=== PATIENT | male | born 1970 | race American Indian/Alaskan Native ===

== ENCOUNTER 2019-02-03 07:24 | Emergency (ER) | payer OTHER ==
[2019-02-03] MEDS ORDERED: NACL 0.9% 1000 ML 1,000 ML IV ONE ×2 (07:35→10:21)
[2019-02-03 08:10] LABS: Bilirubin,Urine NEG (Negative); Blood,Urine NEG (Negative); Color,Urine Yellow (Yellow); Protein,Urine <15 mg/dL mg/dL (Negative)
[2019-02-03 08:11] LABS: Basophils % (Auto) 0.4 % (0.0-1.8); Eosinophils # (Auto) 0.1 K/mm3 (0.0-0.4); Eosinophils % (Auto) 0.5 % (0.0-4.3); Hematocrit 38.7 % (35.5-45.6); Lymphocytes # (Auto) 2.1 K/mm3 (1.2-5.4); Lymphocytes % (Auto) 19.8 % (13.4-35.0); Mean Corpuscular HGB Conc 34 % (32-34); Mean Corpuscular Volume 83 fl (84-94); Monocytes # (Auto) 1.1 K/mm3 (0.0-0.8); Monocytes % (Auto) 9.8 % (0.0-7.3); Platelet Count 334 K/mm3 (140-440); Red Blood Count 4.66 M/mm3 (3.65-5.03); Red Cell Distribution Width 13.5 % (13.2-15.2)
[2019-02-03 08:28] LABS: Alanine Aminotransferase 18 units/L (7-56); BUN/Creatinine Ratio 16; Blood Urea Nitrogen 18 mg/dL (9-20); Calcium 8.7 mg/dL (8.4-10.2); Hemolysis Index 15
[2019-02-03] MEDS ORDERED: TORADOL IV ONE (09:32)
[2019-02-03] MEDS ORDERED: ZOFRAN IV ONE (10:12)
[2019-02-03] MEDS ORDERED: ZOFRAN ONE (10:15)
--- NOTE | 2019-02-03 11:10 | Cat Scan Report ---
PROCEDURE: CT ABDOMEN PELVIS WO CON TECHNIQUE: Multiple contiguous axial images were obtained from lung bases to the pubic symphysis wit hout administration of IV contrast. Reformatted sagittal and coronal images were available for review . HISTORY: left flank pain COMPARISONS: None. FINDINGS: Lower thorax: Normal. Liver and biliary tree: Normal noncontrast appearance. Gallbladder: Normal. Spleen: Normal noncontrast appearance. Pancreas: Normal noncontrast appearance. Adrenal glands: Normal. Kidneys, ureters, and bladder: Normal noncontrast appearance. No hydronephrosis. No renal or ureteral calculi. Bowel:No focal wall thickening. No evidence of obstruction. Post appendectomy changes of the cecum. Peritoneum/mesentery: Medial to the left kidney and inferior to the left adrenal gland, there is a so ft tissue lesion that measures approximately 2.8 x 2.5 x 3.9 cm (series 2, image 62, transverse by AP by craniocaudal dimensions). No free air or free fluid. Pelvic organs:Normal. Vasculature: Normal noncontrast appearance. Abdominal wall: Normal. Bones: No suspicious osseous lesions. No acute fracture or dislocation. Degenerative changes at L5-S1 . IMPRESSION: 2.8 x 2.5 x 3.9 cm soft tissue retroperitoneal lesion medial to the left kidney and inferior to the l eft adrenal gland, that may represent lymphadenopathy from infection or inflammation versus malignanc y. Recommend clinical correlation. No renal or ureteral calculi. No hydronephrosis. This document is electronically signed by Lisa Bradshaw MD., February 03 2019 11:07:38 AM ET
--- NOTE | 2019-02-03 11:22 | Emergency Department Report ---
ED Abdominal Pain HPI - General Chief Complaint: Abdominal Pain Stated Complaint: L SIDE/BACK PAIN Time Seen by Provider: 02/03/19 09:07 Source: patient Mode of arrival: Ambulatory Limitations: No Limitations - History of Present Illness Initial Comments: Patient is a 48-year-old male with a past history of diabetes who is presenting with 2 days of left flank pain. Patient states that he's had some mild nausea but denies any hematuria dysuria or urinary frequency. Patient states the aching sensation left flank. He has not had this pain before. Patient states pain is a 6 out of 10 in severity. Radiation: none Migration to: no migration Severity scale (0 -10): 6 Quality: aching Consistency: constant Improves With: nothing - Related Data Previous Rx's Medication Instructions Recorded Last Taken Type Amoxicillin/Potassium Clav 1 each PO BID #14 tablet 02/03/19 Unknown Rx [Augmentin 875-125 Tablet] Ibuprofen [Ibu] 600 mg PO Q6HR PRN #20 tablet 02/03/19 Unknown Rx Ondansetron [Zofran Odt] 4 mg PO Q8HR #10 tab.rapdis 02/03/19 Unknown Rx traMADol [Ultram] 50 mg PO Q6HR PRN #12 tablet 02/03/19 Unknown Rx Allergies Allergy/AdvReac Type Severity Reaction Status Date / Time No Known Allergies Allergy Unverified 02/03/19 07:35 ED Review of Systems ROS: Stated complaint: L SIDE/BACK PAIN Other details as noted in HPI Comment: All other systems reviewed and negative ED Past Medical Hx - Past Medical History Previous Medical History?: Yes Hx Hypertension: Yes Hx Diabetes: Yes - Surgical History Past Surgical History?: Yes Hx Appendectomy: Yes Additional Surgical History: Knee surgery, left - Medications Home Medications: Home Medications Medication Instructions Recorded Confirmed Last Taken Type Amoxicillin/Potassium Clav 1 each PO BID #14 tablet 02/03/19 Unknown Rx [Augmentin 875-125 Tablet] Ibuprofen [Ibu] 600 mg PO Q6HR PRN #20 tablet 02/03/19 Unknown Rx Ondansetron [Zofran Odt] 4 mg PO Q8HR #10 tab.rapdis 02/03/19 Unknown Rx traMADol [Ultram] 50 mg PO Q6HR PRN #12 tablet 02/03/19 Unknown Rx ED Physical Exam - General Limitations: No Limitations General appearance: alert, in no apparent distress - Head Head exam: Present: atraumatic, normocephalic - Eye Eye exam: Present: normal appearance - ENT ENT exam: Present: mucous membranes moist - Neck Neck exam: Present: normal inspection - Respiratory Respiratory exam: Present: normal lung sounds bilaterally. Absent: respiratory distress, wheezes, rales, rhonchi - Cardiovascular Cardiovascular Exam: Present: regular rate, normal rhythm. Absent: systolic murmur, diastolic murmur, rubs, gallop - GI/Abdominal GI/Abdominal exam: Present: soft, normal bowel sounds. Absent: distended, tenderness, guarding, rebound - Rectal Rectal exam: Present: deferred - Extremities Exam Extremities exam: Present: normal inspection - Back Exam Back exam: Present: normal inspection - Neurological Exam Neurological exam: Present: alert, oriented X3 - Psychiatric Psychiatric exam: Present: normal affect, normal mood - Skin Skin exam: Present: warm, dry, intact, normal color. Absent: rash ED Course Vital Signs 02/03/19 10:19 Respiratory 20 Rate ED Medical Decision Making - Lab Data Result diagrams: 02/03/19 07:47 02/03/19 07:44 Lab Results 02/03/19 02/03/19 02/03/19 Range/Units 07:44 07:47 07:47 WBC 10.7 (4.5-11.0) K/mm3 RBC 4.66 (3.65-5.03) M/mm3 Hgb 13.0 (11.8-15.2) gm/dl Hct 38.7 (35.5-45.6) % MCV 83 L (84-94) fl MCH 28 (28-32) pg MCHC 34 (32-34) % RDW 13.5 (13.2-15.2) % Plt Count 334 (140-440) K/mm3 Lymph % (Auto) 19.8 (13.4-35.0) % Curry % (Auto) 9.8 H (0.0-7.3) % Eos % (Auto) 0.5 (0.0-4.3) % Baso % (Auto) 0.4 (0.0-1.8) % Lymph # 2.1 (1.2-5.4) K/mm3 Curry # 1.1 H (0.0-0.8) K/mm3 Eos # 0.1 (0.0-0.4) K/mm3 Baso # 0.0 (0.0-0.1) K/mm3 Seg Neutrophils % 69.5 (40.0-70.0) % Seg Neutrophils # 7.4 (1.8-7.7) K/mm3 Sodium 130 L (137-145) mmol/L Potassium 4.3 (3.6-5.0) mmol/L Chloride 89.1 L (98-107) mmol/L Carbon Dioxide 27 (22-30) mmol/L Anion Gap 18 mmol/L BUN 18 (9-20) mg/dL Creatinine 1.1 (0.8-1.5) mg/dL Estimated GFR > 60 ml/min BUN/Creatinine Ratio 16 % Glucose 343 H (75-100) mg/dL Calcium 8.7 (8.4-10.2) mg/dL Total Bilirubin 0.60 (0.1-1.2) mg/dL AST 15 (5-40) units/L ALT 18 (7-56) units/L Alkaline Phosphatase 97 (35-129) units/L Total Protein 7.7 (6.3-8.2) g/dL Albumin 4.0 (3.9-5) g/dL Albumin/Globulin Ratio 1.1 % Urine Color Yellow (Yellow) Urine Turbidity Clear (Clear) Urine pH 6.0 (5.0-7.0) Ur Specific [place] 1.027 (1.003-1.030) Urine Protein <15 mg/dl (Negative) mg/dL Urine Glucose (UA) >=500 (Negative) mg/dL Urine Ketones 20 (Negative) mg/dL Urine Blood Neg (Negative) Urine Nitrite Neg (Negative) Urine Bilirubin Neg (Negative) Urine Urobilinogen 2.0 (<2.0) mg/dL Ur Leukocyte Esterase Neg (Negative) Urine WBC (Auto) 1.0 (0.0-6.0) /HPF Urine RBC (Auto) 1.0 (0.0-6.0) /HPF U Epithel Cells (Auto) 1.0 (0-13.0) /HPF - Radiology Data [facility] [address] [place] [address] Cat Scan Report Signed Patient: NICANOR LANGE MR#: [id number] : 1970 Acct:[id number] Age/Sex: 48 / M ADM Date: 02/03/19 Loc: ED Attending Dr: Ordering Physician: MARANDA LINK MD Date of Service: 02/03/19 Procedure(s): CT abdomen pelvis wo con Accession Number(s): [id number] cc: MARANDA LINK MD PROCEDURE: CT ABDOMEN PELVIS WO CON TECHNIQUE: Multiple contiguous axial images were obtained from lung bases to the pubic symphysis without administration of IV contrast. Reformatted sagittal and coronal images were available for review. HISTORY: left flank pain COMPARISONS: None. FINDINGS: Lower thorax: Normal. Liver and biliary tree: Normal noncontrast appearance. Gallbladder: Normal. Spleen: Normal noncontrast appearance. Pancreas: Normal noncontrast appearance. Adrenal glands: Normal. Kidneys, ureters, and bladder: Normal noncontrast appearance. No hydronephrosis. No renal or ureteral calculi. Bowel:No focal wall thickening. No evidence of obstruction. Post appendectomy changes of the cecum. Peritoneum/mesentery: Medial to the left kidney and inferior to the left adrenal gland, there is a soft tissue lesion that measures approximately 2.8 x 2.5 x 3.9 cm (series 2, image 62, transverse by AP by craniocaudal dimensions). No free air or free fluid. Pelvic organs:Normal. Vasculature: Normal noncontrast appearance. Abdominal wall: Normal. Bones: No suspicious osseous lesions. No acute fracture or dislocation. Degenerative changes at L5- S1. IMPRESSION: 2.8 x 2.5 x 3.9 cm soft tissue retroperitoneal lesion medial to the left kidney and inferior to the left adrenal gland, that may represent lymphadenopathy from infection or inflammation versus malignancy. Recommend clinical correlation. No renal or ureteral calculi. No hydronephrosis. This document is electronically signed by Lisa Mosquera MD., February 03 2019 11:07:38 AM ET Transcribed By: GERALD Dictated By: LISA MOSQUERA MD Electronically Authenticated By: LISA MOSQUERA MD Signed Date/Time: 02/03/19 1110 DD/ 1004 TD/TT: 02/03/19 1007 - Medical Decision Making I had a long discussion with the patient regarding lymph nodes and their purpose. Patient is restarted on antibiotics. Patient given follow-up. The patient likely will need a another CT scan and if the area of swelling that is likely a lymph node is not improved patient will need further diagnostic studies to determine whether this is a malignancy. Critical care attestation.: If time is entered above; I have spent that time in minutes in the direct care of this critically ill patient, excluding procedure time. ED Disposition Clinical Impression: Lymphadenitis Disposition: - TO HOME OR SELFCARE Is pt being admited?: No Does the pt Need Aspirin: No Condition: Stable Additional Instructions: Please ensure that you follow-up. You will need another CAT scan to assure that this area of swelling that is thought to be a lymph node has decreased in size. If this does not decrease in size you need to be evaluated for the possibility of this being a tumor. Referrals: ALEXIA GUY MD [Staff Physician] - 3-5 Days PRITI MAHER MD [Staff Physician] - 3-5 Days Time of Disposition: 11:25
[2019-02-03 11:44] VITALS: BP 149/82
== END 2019-02-03 11:45 | disposition home or self-care (01) ==
LOC: ED 07:24
DX: I88.9 Nonspecific lymphadenitis, unspecified (principal); I10 Essential (primary) hypertension; E11.9 Type 2 diabetes mellitus without complications; Z90.49 Acquired absence of other specified parts of digestive tract
CPT/HCPCS: 36415; 74176; 80053; 81001; 85025; 96374; 96375; 99284; J1885; J2405; J7030